=== PATIENT | male | born 1990 | race Caucasian/White ===

== ENCOUNTER 2022-06-28 13:58 | Emergency (ER) | payer OTHER ==
[~2022-06-28] VITALS: Ht 167.6 cm; Wt 72.6 kg
--- NOTE | 2022-06-28 14:14 | NUR ---
BLE PAIN SINCE YESTERDAY, NOTED CHRONIC BLE EDEMA. DENIES CP, SOB FINISHED DIALYSIS TODAY. PAIN IS 2/10 ON PAIN SCALE. AWAITING MD LIEBERMAN.
--- NOTE | 2022-06-28 14:15 | NUR ---
PATIENT C/O BLE PAIN, WITH NOTED CHRONIC BLE EDEMA. STATES HE HAS HAD ON GOING PAIN FOR 9 MONTHS. A/O X4. STABLE ON RA. AWAITING TO BE SEEN BY MD. WILL CONTINUE TO MONITOR
[2022-06-28 15:36] LABS: BASOPHILS % (AUTO) 0.5 % (0.0-2.0); EOSINOPHILS % (AUTO) 4.3 % (0.0-6.0); HEMATOCRIT 36 % (39-51); HEMOGLOBIN 11.9 g/dL (13.5-17.5); LYMPHOCYTES # (AUTO) 0.9 K/uL (0.8-4.8); LYMPHOCYTES % (AUTO) 12.6 % (20.0-44.0); MEAN CORPUSCULAR HGB CONC 33 g/dl (31.0-36.0); MEAN CORPUSCULAR VOLUME 92 fL (80-96); MONOCYTES # (AUTO) 0.5 K/uL (0.1-1.30); MONOCYTES % (AUTO) 7.1 % (2.0-12.0); NEUTROPHILS # (AUTO) 5.2 K/uL (1.8-8.9); NEUTROPHILS % (AUTO) 75.5 % (43.0-81.0); PLATELET COUNT (AUTO) 177 K/uL (150-450); RED BLOOD CELL COUNT(AUTO) 3.92 MIL/uL (4.5-6.0); WHITE BLOOD COUNT (AUTO) 6.9 K/uL (4.3-11.0)
[2022-06-28 15:45] LABS: CALCIUM, SERUM 8.8 mg/dL (8.5-10.1); CARBON DIOXIDE 30 mmol/L (21-32); CHLORIDE 96 mmol/L (98-107); GLUCOSE 84 mg/dL (74-106); POTASSIUM 4.4 mmol/L (3.5-5.1); SODIUM SERUM 136 mmol/L (136-145); UREA NITROGEN, BLOOD 44 mg/dL (7-18)
[2022-06-28 15:50] LABS: CREATININE 7.7 mg/dL (0.6-1.3)
[2022-06-28 15:58] LABS: ALANINE AMINOTRANSFERASE 35 U/L (12-78); ALBUMIN 3.4 g/dL (3.4-5.0); ALKALINE PHOSPHATASE 165 U/L (46-116); ASPARTATE AMINOTRANSFERASE 18 U/L (15-37); BILIRUBIN,DIRECT 0.3 mg/dL (0.0-0.2); BILIRUBIN,TOTAL 1.3 mg/dL (0.2-1.0); TOTAL PROTEIN, SERUM 8.4 g/dL (6.4-8.2)
[2022-06-28] MEDS ORDERED: CEPH500C2 PO (17:24)
--- NOTE | 2022-06-28 17:41 | NUR ---
Patient discharged to home in stable condition. Written and verbal after care instructions given. Patient verbalizes understanding of instruction.
[2022-06-28 17:45] VITALS: BP 139/99
== END 2022-06-28 17:42 | disposition home or self-care (01) ==
LOC: ER 14:22
DX: R60.0 Localized edema (principal); I13.2 Hypertensive heart and chronic kidney disease with heart failure and with stage 5 chronic kidney disease, or end stage renal disease; N18.6 End stage renal disease; I50.9 Heart failure, unspecified; Z99.2 Dependence on renal dialysis
CPT/HCPCS: 36415; 71045-TC; 80048-TC; 80076-TC; 83880; 85025-TC

== ENCOUNTER 2022-10-11 09:54 | Emergency (ER) | payer OTHER ==
[~2022-10-11] VITALS: Ht 167.6 cm; Wt 68.0 kg
[~2022-10-11 09:54] MED LIST: CEPH500C2 PO
--- NOTE | 2022-10-11 10:25 | NUR ---
BIBS FOR ELEVATED K+ LEVEL. SCHEDULED DIALYSIS TODAY, LAST DIALYZED MONDAY. TO ER BED 6.
[2022-10-11] MEDS ORDERED: Calcium Gluconate 0.465 MEQ/ML VIAL IV ONE ×2 (11:30→11:35)
[2022-10-11 11:35] LABS: BASOPHILS % (AUTO) 0.7 % (0.0-2.0); EOSINOPHILS % (AUTO) 12.2 % (0.0-6.0); HEMATOCRIT 30 % (39-51); LYMPHOCYTES # (AUTO) 0.6 K/uL (0.8-4.8); LYMPHOCYTES % (AUTO) 13.8 % (20.0-44.0); MEAN CORPUSCULAR HGB CONC 33 g/dl (31.0-36.0); MEAN CORPUSCULAR VOLUME 95 fL (80-96); MONOCYTES # (AUTO) 0.3 K/uL (0.1-1.30); MONOCYTES % (AUTO) 6.8 % (2.0-12.0); NEUTROPHILS # (AUTO) 3.1 K/uL (1.8-8.9); NEUTROPHILS % (AUTO) 66.5 % (43.0-81.0); PLATELET COUNT (AUTO) 120 K/uL (150-450); WHITE BLOOD COUNT (AUTO) 4.6 K/uL (4.3-11.0)
--- NOTE | 2022-10-11 11:43 | NUR ---
COVID SWAB COLLECTED AND SENT TO LAB
--- NOTE | 2022-10-11 11:46 | NUR ---
MOVE SHEET SUBMITTED
[2022-10-11 11:49] LABS: CALCIUM, SERUM 7.3 mg/dL (8.5-10.1); POTASSIUM 5.4 mmol/L (3.5-5.1)
[2022-10-11 12:13] LABS: CREATININE 14.5 mg/dL (0.6-1.3)
[2022-10-11] MEDS ORDERED: CALC667C6 PO (12:55)
[2022-10-11] MEDS ORDERED: LABE100T5 PO (12:55)
[2022-10-11] MEDS ORDERED: NIFE-34 PO (12:55)
--- NOTE | 2022-10-11 13:37 | NUR ---
IV removed. Catheter intact and site benign. Pressure and 4x4 applied to site. No bleeding noted.
--- NOTE | 2022-10-11 13:40 | NUR ---
Patient discharged to home in stable condition. Written and verbal after care instructions given. Patient verbalizes understanding of instruction.
[2022-10-11 13:47] VITALS: BP 154/83
== END 2022-10-11 13:47 | disposition home or self-care (01) ==
LOC: ER 09:58
DX: E87.5 Hyperkalemia (principal); I12.0 Hypertensive chronic kidney disease with stage 5 chronic kidney disease or end stage renal disease; N18.6 End stage renal disease; Z99.2 Dependence on renal dialysis; R94.31 Abnormal electrocardiogram [ECG] [EKG]; Z20.822 Contact with and (suspected) exposure to COVID-19
CPT/HCPCS: 99284; 96374; 87426; 93005; 85025; 80048; 36415; J0610; C9803

== ENCOUNTER 2023-01-10 10:21 | Inpatient (IN) | payer OTHER ==
[~2023-01-10] VITALS: Ht 167.6 cm; Wt 72.6 kg
[~2023-01-10 10:21] MED LIST changes: +CALC667C6 PO; -CEPH500C2 PO; +LABE100T5 PO; +NIFE-34 PO
--- NOTE | 2023-01-10 10:34 | NUR ---
DR ECHOLS AT BEDSIDE
[2023-01-10 10:59] LABS: BASOPHILS % (AUTO) 0.4 % (0.0-2.0); EOSINOPHILS % (AUTO) 5.6 % (0.0-6.0); HEMATOCRIT 35 % (39-51); HEMOGLOBIN 11.1 g/dL (13.5-17.5); LYMPHOCYTES # (AUTO) 0.7 K/uL (0.8-4.8); LYMPHOCYTES % (AUTO) 12.5 % (20.0-44.0); MEAN CORPUSCULAR HGB CONC 32 g/dl (31.0-36.0); MEAN CORPUSCULAR VOLUME 97 fL (80-96); MONOCYTES # (AUTO) 0.2 K/uL (0.1-1.30); MONOCYTES % (AUTO) 3.2 % (2.0-12.0); NEUTROPHILS # (AUTO) 4.4 K/uL (1.8-8.9); NEUTROPHILS % (AUTO) 78.3 % (43.0-81.0); PLATELET COUNT (AUTO) 135 K/uL (150-450); RED BLOOD CELL COUNT(AUTO) 3.57 MIL/uL (4.5-6.0); WHITE BLOOD COUNT (AUTO) 5.7 K/uL (4.3-11.0)
[2023-01-10] MEDS ORDERED: hydrALAZINE HCL IV 20 MG VIAL IV ONE (11:00)
--- NOTE | 2023-01-10 11:03 | NUR ---
IV ESTABLISHED. RAC 20G
--- NOTE | 2023-01-10 11:04 | NUR ---
COVID SWAB COLLECTED AND SENT TO LAB
--- NOTE | 2023-01-10 11:04 | NUR ---
BLOOD DRAWN AND SENT TO LAB
[2023-01-10] MEDS ORDERED: hydrALAZINE HCL IV 20 MG VIAL ONE (11:07)
[2023-01-10 11:11] LABS: CALCIUM, SERUM 8.5 mg/dL (8.5-10.1); CARBON DIOXIDE 23 mmol/L (21-32); CHLORIDE 101 mmol/L (98-107); GLUCOSE 101 mg/dL (74-106); SODIUM SERUM 138 mmol/L (136-145)
[2023-01-10 11:17] LABS: ALANINE AMINOTRANSFERASE 47 U/L (12-78); ALKALINE PHOSPHATASE 201 U/L (46-116); ASPARTATE AMINOTRANSFERASE 20 U/L (15-37); BILIRUBIN,DIRECT 0.3 mg/dL (0.0-0.2); TOTAL PROTEIN, SERUM 8.5 g/dL (6.4-8.2)
--- NOTE | 2023-01-10 11:17 | NUR ---
MOVE SHEET SUBMITTED.
[2023-01-10 11:21] LABS: POTASSIUM 7.1 mmol/L (3.5-5.1); UREA NITROGEN, BLOOD 98 mg/dL (7-18)
--- NOTE | 2023-01-10 11:24 | NUR ---
DR. LEVI SPEAKING WITH DR. ECHOLS.
[2023-01-10] MEDS ORDERED: INSULIN REGULAR, HUMAN 100 UNIT/ML 10 ML VIAL IV ONE (11:30)
[2023-01-10] MEDS ORDERED: DEXTROSE 50%-WATER 50 ML DISP.SYRIN IV ONE (11:30)
[2023-01-10] MEDS ORDERED: SODIUM BICARBONATE SYR 50 MEQ/50 ML DISP.SYRIN IV ONE (11:30)
[2023-01-10] MEDS ORDERED: ALBUTEROL FS 2.5 MG/3 ML VIAL.NEB NEB ONE (11:30)
[2023-01-10] MEDS ORDERED: CALCIUM CHLORIDE 1,000 MG/10 ML DISP.SYRIN IV ONE (11:30)
[2023-01-10] MEDS ORDERED: CALCIUM CHLORIDE 1,000 MG/10 ML DISP.SYRIN ONE (11:40)
[2023-01-10] MEDS ORDERED: SODIUM BICARBONATE SYR 50 MEQ/50 ML DISP.SYRIN ONE (11:40)
[2023-01-10] MEDS ORDERED: DEXTROSE 50%-WATER 50 ML DISP.SYRIN ONE ×2 (11:41→11:42)
[2023-01-10] MEDS ORDERED: INSULIN REGULAR, HUMAN 100 UNIT/ML 10 ML VIAL ONE (11:41)
[2023-01-10] MEDS ORDERED: CINA30TA6 PO (11:53)
--- NOTE | 2023-01-10 12:26 | NUR ---
dr. faustin at bedside
--- NOTE | 2023-01-10 12:26 | NUR ---
RT AT BEDSIDE
--- NOTE | 2023-01-10 13:08 | NUR ---
REPORT GIVEN TO ANNAMARIE FOR CONTIUATION OF CARE
[2023-01-10 14:00] VITALS: BP 177/104
--- NOTE | 2023-01-10 14:00 | NUR ---
RN NOTE RECEIVED PATIENT ADMITTED TO ROOM 112-1
[2023-01-10] MEDS ORDERED: ONDANSETRON HCL/PF 4 MG/2 ML VIAL IVP PRN (14:30)
[2023-01-10] MEDS ORDERED: Z GUARD REMEDY 4 OZ OINT TP PRN (14:30)
[2023-01-10] MEDS ORDERED: ACETAMINOPHEN 325 MG TABLET PO PRN (14:30)
[2023-01-10] MEDS: hydrALAZINE HCL IV 20 MG VIAL IV PRN ×2 (15:28→19:58)
[2023-01-10 16:00] VITALS: BP 189/101
--- NOTE | 2023-01-10 16:00 | NUR ---
RN NOTES PATIENT VITALS HIGH THEY WERE CHECKED BEFORE BP MEDICATIONS WERE GIVEN.
--- NOTE | 2023-01-10 16:30 | NUR ---
RN NOTE CHARGE NURSE MARVIN NOTIFIED EAR FLAP BINDER ANNAMARIE MAR REGARDING STAT ORDER FOR HEMODIALYSIS.
[2023-01-10] MEDS ORDERED: NIFEDIPINE XL 60 MG TAB.ER.24 PO SCH (17:00)
[2023-01-10] MEDS ORDERED: LABETALOL HCL (100MG) 100 MG TABLET PO SCH (17:00)
--- NOTE | 2023-01-10 17:24 | NUR ---
RN NOTES ALL BP MEDS DUE TO STAT HEMODIALYSIS.
[2023-01-10] MEDS ORDERED: CALCIUM ACETATE 667 MG CAP/TAB PO SCH (18:00)
--- NOTE | 2023-01-10 18:43 | NUR ---
RN CLOSING NOTES PATIENT IN BED UNDERGOING HEMODIALYSIS. PATIENT IS ALERT AND ORIENTED X 4. AUSTRIAN SPEAKING. ON ROOM AIR WITH NO SIGNS OF RESPIRATORY DISTRESS OR SOB. SR ELEVATED. ON RENAL DIET. IV ACCESS RAC 20G SALINE LOCKED. AMBULATORY. BLE EDEMA WITH SOME SCABBING. ON RENAL DIET. PAIN MEDS AND HYDRALAZINE ADMINISTERED DURING SHIFT. ALL SAFETY PRECAUTIONS IN PLACE, BED ON LOWEST POSITION, SIDE RAILS UP X 2, CALL LIGHT WITHIN REACH. WILL ENDORSE ON INCOMING NURSE FOR ALFREDO.
--- NOTE | 2023-01-10 19:20 | NUR ---
DRY GOODS INSPECTOR OPENING NOTES - RECEIVED PATIENT AWAKE IN BED. A/O X4, CAMBODIAN SPEAKING. UNDERWENT HD, 1000 ML REMOVED. BREATHING EVEN AND NON-LABORED ON ROOM AIR. NOT IN APPARENT DISTRESS. DENIES PAIN AT THIS TIME. ON TELE MONITOR READING SINUS TACHYCARDIA WITH ST ELEVATION AT 110 BPM. HAS RIGHT ANTECUBITAL IV ACCESS #20G AND SALINE LOCKED. NO S/S OF INFILTRATION NOTED. PATIENT VERBALIZED HE WANTS TO GO HOME TONIGHT, ADVISED HE IS NOT YET STABLE. SAFETY PRECAUTIONS IN PLACE: BED LOCKED AND IN LOW POSITION, SIDE RAILS UP X2, CALL LIGHT WITHIN REACH. WILL CONTINUE PLAN OF CARE.
--- NOTE | 2023-01-10 19:40 | NUR ---
CALLED BY PRIMARY NURSE TO ROOM REGARDING PATIENT WANTED TO LEAVE AGAINST MEDICAL ADVICE, SUMMONED TO ROOM AND PATIENT JUST FINISHED HD WITH 1LITER FLUID REMOVED, AND BLOOD PRESSURE AT THIS TIME 179/105, ACCORDING TO HD NURSE BP WAS AROUND THE SAME THROUGHOUT HD, PATIENT SYRIAC SPEAKING, TALKED TO PATIENT IN [place] AND EXPLAINED TO HIM THAT BLOOD PRESSURE IS TOO HIGH 179/105, THAT POTASSIUM WAS 7.1 BEFORE HD, AND THE PLAN IS TO DO HD AGAIN TOMORROW, EXPLAINED TO PATIENT THE PLAN OF CARE, THE RISKS AND BENEFITS AND HE STILL REFUSED MULTIPLE TIMES, HE STATED HE KNOWS HIS BODY, BETTER THAT THE BLOOD PRESSURE MACHINE WHEN MACHINE SHOWED HIGH BLOOD PRESSURE, EXPLAINED THAT HE SHOULD KNOW THE RISKS OF HAVING THAT HIGH BLOOD PRESSURE AND THE POTASSIUM BEEN 7.1 EARLIER, HE STATED HE IS FINE AND HE WILL BE FINE, 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
--- NOTE | 2023-01-10 19:45 | NUR ---
CALLED PLATE MAKER ABBY AND INFORMED HER THAT PATIENT WANTS TO LEAVE AGAINST MEDICAL ADVICE, PER HER EXPLAINS RISKS AND BENEFITS TO THE PATIENT, PATIENT ALREADY AWARE OF RISKS AND BENEFITS OF LEAVING AGAINST MEDICAL ADVICE.
[2023-01-10 20:00] VITALS: BP 179/105
--- NOTE | 2023-01-10 20:06 | NUR ---
DR. ROBERTS AND DR. LEVI AWARE. [facility] EXPLAINED IN [place]ER [place] THE CONS SPECIALLY THAT HE CAN DROP FROM A HEART ATTACKED WITH POTASSIUM OF 7.1, PATIENT VERBALIZED UNDERSTANDING AND STILL WANTS TO LEAVE AMA. FORM SIGNED. PRN HYDRALAZINE 10MG GIVEN FOR BP OF 179/105. IV ACCESS AND TELE BOX REMOVED. PER PATIENT, HE WILL BE PICKED-UP BY HIS FAMILY.
--- NOTE | 2023-01-10 20:13 | NUR ---
PATIENT LEFT AT 2012, NO ACUTE DISTRESS, AMBULATORY.
[2023-01-10] MEDS ORDERED: HEPARIN SODIUM, PORCINE 5000 UNITS/1 ML VIAL SQ SCH (21:00)
[2023-01-11] MEDS ORDERED: PANTOPRAZOLE 40 MG TABLET.DR PO SCH (07:30)
[2023-01-11] MEDS ORDERED: CINACALCET HCL 30 MG TABLET PO SCH (09:00)
== END 2023-01-10 20:44 | disposition left against medical advice (07) | DRG 194 ==
LOC: ER 10:27 → TELE1 12:30
PROVIDERS: ADMIT Nurse Practitioner Family; ATTEND Nurse Practitioner Family
PROC: 5A1D70Z Performance of Urinary Filtration, Intermittent, Less than 6 Hours Per Day (ICD-10-PCS; principal; 2023-01-10)
DX: I13.2 Hypertensive heart and chronic kidney disease with heart failure and with stage 5 chronic kidney disease, or end stage renal disease (principal); N18.6 End stage renal disease; I24.9 Acute ischemic heart disease, unspecified; E87.5 Hyperkalemia; I50.23 Acute on chronic systolic (congestive) heart failure; I16.1 Hypertensive emergency; Z79.899 Other long term (current) drug therapy; Z53.29 Procedure and treatment not carried out because of patient's decision for other reasons; Z99.2 Dependence on renal dialysis; M89.8X9 Other specified disorders of bone, unspecified site; Z20.822 Contact with and (suspected) exposure to COVID-19
CPT/HCPCS: 36415; 71045-TC; 80048-TC; 80076-TC; 82962-TC; 83880; 84484-TC; 85025-TC; 87081-TC; 93307-TC; C9803; G0378; J0360; J1815; J3490; J7030

== ENCOUNTER 2024-02-27 13:33 | Emergency (ER) | payer OTHER ==
[~2024-02-27] VITALS: Ht 170.2 cm; Wt 68.0 kg
[~2024-02-27 13:33] MED LIST changes: +CINA30TA6 PO
[2024-02-27 14:48] VITALS: BP 142/101; TEMP 98.5; O2SAT 98
== END 2024-02-27 15:43 | disposition home or self-care (01) ==
LOC: ER 13:36
DX: I12.0 Hypertensive chronic kidney disease with stage 5 chronic kidney disease or end stage renal disease (principal); N18.6 End stage renal disease; Z99.2 Dependence on renal dialysis

== ENCOUNTER → 2024-07-06 | Emergency (ER) | payer OTHER ==
--- NOTE | 2024-07-06 11:51 | NUR ---
called to triage no answer
--- NOTE | 2024-07-06 12:05 | NUR ---
called to triage no answer
--- NOTE | 2024-07-06 12:21 | NUR ---
called to triage no answer
== END | disposition left against medical advice (07) ==
LOC: ER 12:06
DX: R03.0 Elevated blood-pressure reading, without diagnosis of hypertension (principal); Z53.21 Procedure and treatment not carried out due to patient leaving prior to being seen by health care provider